=== PATIENT | male | born 1945 | race Caucasian/White ===

== ENCOUNTER 2023-07-01 14:22 | Outpatient (CLI) | payer MEDICARE, BC, SELFPAY | END 2023-07-01 14:23 | disposition home or self-care (01) | LOC: AMB 08-17 22:09 | PROVIDERS: PCP Family Medicine; Visit Provider Family Medicine | DX: R53.1 Weakness (principal); R41.82 Altered mental status, unspecified | CPT/HCPCS: A0425; A0427 ==